=== PATIENT | female | born 1995 | race Two or more races ===

== ENCOUNTER 2024-05-08 20:33 | Emergency (ER) | payer OTHER ==
[~2024-05-08] VITALS: Ht 165.1 cm; Wt 103.0 kg
[2024-05-08 21:47] LABS: Urine Bacteria FEW /hpf (None Seen); Urine Blood 3+ /uL (Negative); Urine Clarity Turbid (Clear); Urine Color Light-Brown (Yellow); Urine Protein, UAD 1+ (Negative); Urine Specific Gravity 1.004 (1.001-1.035); Urine Urobilinogen Normal (Negative); Urine WBC 2 /hpf (0 - 5); Urine pH 5.5 (5.0-9.0)
[2024-05-08 22:10] VITALS: TEMP 99.1; O2SAT 99
--- NOTE | 2024-05-08 22:16 | DVH ---
Exam: CT CT AB PEL WO CON-NO ORAL OR IV History: Flank pain gross hematuria, HX OF RENAL CALCULI Comparison Study: None available at time of dictation. TECHNIQUE: Multidetector CT of the abdomen was performed from lung bases to pubic symphysis. Imaging was performed without IV contrast. Axial, coronal and sagittal multiplanar reformats were obtained fr om the axial data set by the technologist. Radiation Dose Information: CT Dose: CTDI volume is 16.11 mGy. Dose-length product is 953.54 mGy*cm FINDINGS: Evaluation of solid organs is limited due to lack of intravenous contrast use. Findings: Lung Bases: No acute or significant lung base finding. Normal heart size. No pleural or pericardial effusion. Liver: The liver is normal in size. No focal lesions. Gallbladder and Biliary Tree: Unremarkable Spleen: Unremarkable Pancreas: The pancreas is grossly normal in appearance. Adrenal Glands: Unremarkable Kidneys: Mild left hydronephrosis with a 4-5 mm calculus in the left renal pelvis. 3-4 mm calculus lo wer pole right kidney. Bladder: Grossly unremarkable for degree of distention. Bowel: The stomach is grossly normal in appearance. Small bowel and colon are normal in caliber and d istribution. The appendix is not visualized; however, no secondary findings of acute appendicitis id entified. Ascites: Absent Lymphadenopathy: No mesenteric, retroperitoneal or periportal lymphadenopathy. Abdominal Wall and Mesentery: Unremarkable. Vasculature: The visualized abdominal aorta is normal in size and caliber. Evaluation of abdominal a nd pelvic vessels is limited due to lack of intravenous contrast. Pelvic Organs: Unremarkable Musculoskeletal: No aggressive focal bony lesions, acute fractures or dislocation. Soft tissues: Unremarkable IMPRESSION: 1. 4-5 mm calculus in the left renal pelvis with mild left hydronephrosis 2. 3-4 mm calculus lower pole right kidney no hydronephrosis Radiation optimization: All CT scans at this facility use at least one of these dose optimization te chniques: automated exposure control mA and/or kV adjustment per patient size (includes targeted exa ms where dose is matched to clinical indication) or iterative reconstruction.
[2024-05-08] MEDS: KETOROLAC TROMETH 60MG/2ML VIAL IM ONE (22:30)
[2024-05-08] MEDS: cefTRIAXone SOD 1,000 MG VL IM ONE (22:30)
[2024-05-08] MEDS: TAMSULOSIN HYDROCHLORIDE 0.4 MG CAP PO ONE (22:30)
[2024-05-08] MEDS: MORPHINE SULFATE INJ 2 MG/ml SYRG IM ONE (22:43)
[2024-05-08 23:13] VITALS: BP 124/62; PULSE 64; RESP 18
[2024-05-09] MEDS: OXYCODONE W/ ACETAMINOPHEN 5/325MG TABLET PO ONE (00:07)
[2024-05-09] MEDS ORDERED: IBUP-1456 PO (01:18)
[2024-05-09] MEDS ORDERED: TAMS-35 PO (01:18)
--- NOTE | 2024-05-09 01:19 | ED.PDOC ---
General HPI Comments This is a 28-year-old female presents to the ED chief complaint gross blood in urine. Related symptoms of left flank pain. She reports history of renal calculi with several lithotripsies and stents placed in the past. States feels like another kidney stone. States that she is aware that she does have a kidney stone in her left kidney. Denies fevers, nausea, vomiting, abdominal pain, difficulty breathing, chest pain, shortness of breath. Chief Complaint: Urinary Time Seen by MD: 20:50 Primary Care Provider: SAMUEL Reviewed notes: Nurses Notes, Medications, Allergies Home Meds Active Scripts Ciprofloxacin Hcl (Cipro) 500 Mg Tab, 500 MG PO BID for 7 Days, #14 TAB Prov:LAVELLE WILLOUGHBY [employer] 05/09/24 Hydrocodone-Acetaminophen (Hydrocodone Bitartrate/AC 5-325 mg) 1 Tab Tab, 1 TAB PO Q6HP PRN, #20 TAB Prov:ODESSA CRONIN PAC 05/09/24 Ibuprofen (Ibuprofen) 800 Mg Tab, 1 TAB PO TID PRN for 7 Days, #21 TAB Prov:LAVELLE WILLOUGHBY [employer] 05/09/24 Tamsulosin Hcl (Flomax) 0.4 Mg Cap, 1 CAP PO DAILY for 7 Days, #7 CAP Prov:LAVELLE WILLOUGHBY 05/09/24 Information Source: Patient Mode of Arrival: Ambulatory Past Medical History Past Medical History (Other): Calculi renal Surgical History (Other): Renal stents with lithotripsy Constitutional: denies: chills, diaphoresis, fatigue, fever, malaise, sweats, weakness, others EENTM: denies: blurred vision, double vision, ear bleeding, ear discharge, ear drainage, ear pain, ear ringing, eye pain, eye redness, hearing loss, mouth pain, mouth swelling, nasal discharge, nose bleeding, nose congestion, nose pain, photophobia, tearing, throat pain, throat swelling, voice changes, others Respiratory: denies: cough, hemoptysis, orthopnea, SOB at rest, shortness of breath, SOB with excertion, stridor, wheezing, others Cardiovascular: denies: chest pain, dizzy spells, diaphoresis, Dyspnea on exertion, edema, irregular heart beat, left arm pain, lightheadedness, palpitations, PND, syncope, others Gastrointestinal: denies: abdomen distended, abdominal pain, blood streaked bowels, constipated, diarrhea, dysphagia, difficulty swallowing, hematemesis, melena, nausea, poor appetite, poor fluid intake, rectal bleeding, rectal pain, vomiting, others Genitourinary: reports: burning, hematuria, pain; denies: abnormal vagina bleeding, dyspareunia, dysuria, flank pain, frequency, incontinence, , vagina discharge, urgency, others Neurological: denies: dizziness, fainting, headache, left sided numbness, left sided weakness, numbness, paresthesia, pre-existing deficit, right sided numbness, right sided weakness, seizure, speech problems, tingling, tremors, weakness, others Musculoskeletal: denies: back pain, gout, joint pain, joint swelling, muscle pain, muscle stiffness, neck pain, others Integumetry: denies: bruises, change in color, change in hair/nails, dryness, laceration, lesions, lumps, rash, wounds, others Allergic/Immunocompromised: denies: Difficulty Healing, Frequent Infections, Hives, Itching, others Hematologic/Lymphatic: denies: anemia, blood clots, easy bleeding, easy bruising, swollen glands, others Physical Exam General Appearance: No Apparent Distress, Normal HEENT: Pharynx Normal Neck: Full Range of Motion, Non-Tender Respiratory: Lungs Clear, No Respiratory Distress, Normal Breath Sounds Cardiovascular: No Edema, No JVD, No Murmur, No Gallop, Normal Peripheral Pulses, Regular Rate/Rhythm Breast Exam: Deferred Gastrointestinal: No Organomegaly, Non Tender, No Pulsatile Mass, Normal Bowel Sounds, Soft, Suprapubic (Tenderness Palpated over suprapubic area), Other (Negative CVA tenderness) Genitalia: Deferred Pelvic: Deferred Rectal: Deferred Extremities: Normal capillary refill, Normal inspection, Normal range of motion, Non-tender, No pedal edema Musculoskeletal : Apperance: Normal Neurologic: Alert, program eligibility specialist II-XII nml as Tested, No Motor Deficits, Normal Affect, Normal Mood, No Sensory Deficits Cerebellar Function: Normal Reflexes: Normal Skin: Dry, Normal Color, Warm Lymphatic: No Adenopathy Was a procedure done? Was a procedure done?: No Differential Diagnosis Kidney stone (Female): Pyelonephritis, Urinary obstruction, Urolithiasis X-Ray, Labs, Meds, VS Vital Signs Date Time Temp Pulse Resp B/P (MAP) Pulse Ox O2 Delivery O2 Flow Rate FiO2 05/08/24 23:13 64 18 124/62 05/08/24 22:43 104 18 121/90 05/08/24 22:10 104 18 99 05/08/24 22:10 99.1 104 18 121/90 (100) 99 99.1 05/08/24 20:54 99.3 125 16 131/76 (94) 97 Lab Test 05/08/24 21:35 Range/Units Urine Color Light-brown Yellow Urine Clarity Turbid H Clear Urine pH 5.5 5.0-9.0 Urine Specific [place] 1.004 1.001-1.035 Urine Protein 1+ H Negative Urine Ketones Negative Negative Urine Blood 3+ H Negative /uL Urine Nitrite Negative Negative Urine Bilirubin Negative Negative Urine Urobilinogen Normal Negative mg/dL Urine Leukocyte Esterase Trace Negative /uL Urine RBC 56 0 - 4 /hpf Urine WBC 2 0 - 5 /hpf Urine Squamous Epithelial Cells Few <5 /hpf Urine Bacteria Few H None Seen /hpf Urine Glucose Normal Normal mg/dL Current Medications Medications (Trade) Dose Ordered Sig/Nichelle Route Start Time Stop Time Status Last Admin Ketorolac Tromethamine (Toradol Injection) 60 mg ONCE ONCE IM 05/08/24 22:15 05/08/24 22:16 DC 05/08/24 22:30 Ceftriaxone Sodium (Rocephin) 1,000 mg ONCE ONCE IM 05/08/24 22:15 05/08/24 22:16 DC 05/08/24 22:30 Tamsulosin HCl (Flomax) 0.4 mg ONCE ONCE PO 05/08/24 22:15 05/08/24 22:16 DC 05/08/24 22:30 Morphine Sulfate 1 mg ONCE ONCE IM 05/08/24 22:30 05/08/24 22:31 DC 05/08/24 22:43 Oxycodone/ Acetaminophen (Percocet 5/ 325MG Tablet) 1 tab ONCE ONCE PO 05/09/24 00:00 05/09/24 00:01 DC 05/09/24 00:07 X-Ray, Labs, Meds, VS Comment Abdominal pelvic CT shows 3-4 mm renal calculi in right kidney and 4-5 renal calculi and left kidney with left kidney mild hydronephrosis. UA shows positive RBCs, leukocyte esterase, and bacteria. Patient was given Toradol 60 mg IM and morphine 1 mg IM she notes some improvement in pain 6/10 on pain scale. Patient has been given Percocet 5 mg she noted improvement in pain. She was also given 0.4 mg of Flomax. Currently visiting from [place] she will be here for 5 days. Recommended consider for admission to see renal on Saturday however patient does state she is feeling better and requesting to be discharged. Patient stated she will return to the ER for increasing symptoms, states history of renal calculi in his aware of the symptoms of concern. Discharge with Benavides, Flomax, i buprofen, and Cipro. Patient agrees with discharge plan of care. Time of 1ST Reevaluation: :17 Reevaluation 1ST: Improved Patient Education/Counseling: Diagnosis, Treatment, Prognosis, Need For Follow Up Family Education/Counseling: Diagnosis, Treatment, Prognosis, Need For Follow Up Departure 1 Departure Time of Disposition: 01:17 Impression: Primary Impression: Renal calculus, left Additional Impression: Renal calculus, right Disposition: 01 HOME / SELF CARE / HOMELESS Condition: Stable e-Prescriptions Ciprofloxacin Hcl (Cipro) 500 Mg Tab 500 MG PO BID for 7 Days, #14 TAB Prov: LAVELLE WILLOUGHBY 05/09/24 Hydrocodone-Acetaminophen (Hydrocodone Bitartrate/AC 5-325 mg) 1 Tab Tab 1 TAB PO Q6HP PRN, #20 TAB Prov: ODESSA CRONIN PAC 05/09/24 Ibuprofen (Ibuprofen) 800 Mg Tab 1 TAB PO TID PRN for 7 Days, #21 TAB Prov: LAVELLE WILLOUGHBY 05/09/24 Tamsulosin Hcl (Flomax) 0.4 Mg Cap 1 CAP PO DAILY for 7 Days, #7 CAP Prov: LAVELLE WILLOUGHBY 05/09/24 Discharged With: Significant Other Critical Care Note Critical Care Time?: No Stability Stability form required: No LAVELLE WILLOUGHBY May 09, 2024 01:19
[2024-05-09] MEDS ORDERED: HYDR-4902 PO (01:21)
[2024-05-09] MEDS ORDERED: CIPR-173 PO (01:23)
[2024-05-09] MEDS ORDERED: TRAM-626 PO (19:19)
== END 2024-05-09 01:27 | disposition home or self-care (01) ==
LOC: ER 20:33
DX: N13.2 Hydronephrosis with renal and ureteral calculous obstruction (principal); R31.0 Gross hematuria; Z87.442 Personal history of urinary calculi; Z79.899 Other long term (current) drug therapy
CPT/HCPCS: 74176; 81001; 96372; 99285; J0696; J1885; J2270